=== PATIENT | female | born 1975 | race Caucasian/White ===

== ENCOUNTER 2021-05-05 14:57 | Emergency (ER) | payer BC, OTHER ==
[2021-05-05 15:26] VITALS: BMI 22.7
[2021-05-05] MEDS ORDERED: ALBUTEROL SO4 HFA INHALER IH ONE ×2 (16:00→16:08)
[2021-05-05] MEDS ORDERED: IBUPROFEN 600 MG TABLET (FP) PO ONE ×2 (16:00→16:07)
[2021-05-05] MEDS ORDERED: AZITHROMYCIN 500 MG TABLET PO ONE (17:36)
[2021-05-05] MEDS ORDERED: ALBUTEROL SO4 2.5/IPRATROPIUM 0.5 INH SOL 3 ML VIAL.NEB. NEB ONE ×2 (17:36→17:40)
[2021-05-05] MEDS ORDERED: AZITHROMYCIN 500 MG TABLET ONE (17:40)
[2021-05-05 17:50] VITALS: BP 104/65; PULSE 100; TEMP 98.4
== END 2021-05-05 17:57 | disposition home or self-care (01) ==
LOC: FER 14:57
PROC: 3E0F7GC Introduction of Other Therapeutic Substance into Respiratory Tract, Via Natural or Artificial Opening (ICD-10-PCS; principal; 2021-05-05)
DX: R05.1 Acute cough (principal)
CPT/HCPCS: 71046-TC-FY; 87804; 99284-25; C9803; U0003; U0005